=== PATIENT | male | born 1950 | race Caucasian/White ===

== ENCOUNTER → 2016-05-13 | Outpatient (CLI) | payer OTHER ==
[~2016-05-13] MED LIST: LEVAQUIN TAB 5500 MG PO
== END ==
DX: N18.3 Chronic kidney disease, stage 3 (moderate) (principal); Z91.041 Radiographic dye allergy status; Z91.040 Latex allergy status; Z91.013 Allergy to seafood; Z91.018 Allergy to other foods

== ENCOUNTER → 2016-05-21 | Outpatient (CLI) | payer OTHER | LOC: CT 08:00 | DX: N13.30 Unspecified hydronephrosis (principal); Z91.018 Allergy to other foods; Z91.013 Allergy to seafood; Z91.040 Latex allergy status; Z91.041 Radiographic dye allergy status ==

== ENCOUNTER 2020-11-09 18:11 | Emergency (ER) | payer OTHER ==
[~2020-11-09 18:11] MED LIST changes: +AEROECLIPSE II1 EACH MC; +AMLODIPINE BESYL5 MG PO; +AZITHROMYCIN250 MG PO; +BACTROBAN OINT22 GM EXT; +COLACE 100MG C100 MG PO; +COMBIVENT RESPIM4 GM INH; +DECADRON6 MG PO; +DEPO-TESTO200 MG/1 M IM; +IPRAT-ALBUT 0.5-3 ML INH; +JANUVIA100 MG PO; +KENALOG CREAM 015 GM TOP; +LEVEMIR100 UNIT/1 SQ; +PREDNISOLONE AC10 ML OS
[2020-11-09 19:02] LABS: HEMOGLOBIN 17.7 gm/dl (14.0-17.5); RED BLOOD COUNT 5.45 M/UL (4.20-5.50); WHITE BLOOD COUNT 7.2 K/UL (4.5-11.0)
[2020-11-09 19:20] LABS: BUN/CREATININE RATIO 22 (0-10)
== END 2020-11-09 21:55 | disposition home or self-care (01) ==
LOC: ER1 18:11
PROVIDERS: Emergency Medicine
DX: S30.0XXA Contusion of lower back and pelvis, initial encounter (principal); S60.222A Contusion of left hand, initial encounter; S20.229A Contusion of unspecified back wall of thorax, initial encounter; Z20.822 Contact with and (suspected) exposure to COVID-19; V49.40XA Driver injured in collision with unspecified motor vehicles in traffic accident, initial encounter; Y92.410 Unspecified street and highway as the place of occurrence of the external cause
CPT/HCPCS: 70450; 71045; 71260; 72125; 80053; 82550; 82553; 83874; 84484; 85025; 85610; 85730; 86850; 86900; 86901; 90471; 90715; 93005; 99284; Q9967; U0002

== ENCOUNTER → 2020-11-29 | Outpatient (CLI) | payer OTHER | LOC: HEART 5 07:39 | DX: R07.89 Other chest pain (principal); R00.1 Bradycardia, unspecified; R00.2 Palpitations; I08.2 Rheumatic disorders of both aortic and tricuspid valves | CPT/HCPCS: 78452; 93306; A9502 ==

== ENCOUNTER 2021-02-26 17:38 | Inpatient (IN) | payer OTHER ==
[~2021-02-26] VITALS: Ht 188 cm; Wt 102.1 kg
[~2021-02-26 17:38] MED LIST changes: -LEVEMIR100 UNIT/1 SQ; -PREDNISOLONE AC10 ML OS
[2021-02-26 18:35] LABS: RED BLOOD COUNT 5.5 M/UL (4.20-5.50); WHITE BLOOD COUNT 21.5 K/UL (4.5-11.0)
[2021-02-26 18:59] LABS: BUN/CREATININE RATIO 35 (0-10)
[2021-02-27] MEDS ORDERED: PREDNISOLONE AC10 ML OS (00:11)
[2021-02-27] MEDS ORDERED: LEVEMIR100 UNIT/1 SQ ×2 (00:12→12:33)
[2021-02-27 06:59] LABS: RED BLOOD COUNT 5.27 M/UL (4.20-5.50); WHITE BLOOD COUNT 19.7 K/UL (4.5-11.0)
[2021-02-27 07:27] LABS: BUN/CREATININE RATIO 29 (0-10)
[2021-02-27] MEDS ORDERED: HYDROCODON-ACE1 EAC4 PO (10:25)
[2021-02-27] MEDS ORDERED: COLACE100 MG PO (10:25)
[2021-02-27] MEDS ORDERED: IBU800 MG PO (12:37)
[2021-02-27] MEDS ORDERED: JARDIANCE25 MG PO (12:38)
[2021-02-27] MEDS ORDERED: NOVOLIN R100 UNIT/1 INJ (12:40)
[2021-02-28 05:59] LABS: HEMOGLOBIN 16.2 gm/dl (14.0-17.5); RED BLOOD COUNT 4.78 M/UL (4.20-5.50); WHITE BLOOD COUNT 15.5 K/UL (4.5-11.0)
[2021-02-28 06:28] LABS: BUN/CREATININE RATIO 35 (0-10)
== END 2021-02-28 14:38 | disposition home or self-care (01) | DRG 419 ==
LOC: ER1 17:38 → MED SURG 4 22:36 → CDU 22:36 → MED SURG 4 02-27 00:30
PROVIDERS: Internal Medicine; Physician Assistant; Physician Assistant Medical; Surgery; ADMIT Internal Medicine
PROC: 0FT44ZZ Resection of Gallbladder, Percutaneous Endoscopic Approach (ICD-10-PCS; principal; 2021-02-27 08:45)
DX: K80.00 Calculus of gallbladder with acute cholecystitis without obstruction (principal); K82.A1 Gangrene of gallbladder in cholecystitis; R00.8 Other abnormalities of heart beat; I10 Essential (primary) hypertension; Z96.649 Presence of unspecified artificial hip joint; E11.9 Type 2 diabetes mellitus without complications; Z86.16 Personal history of COVID-19; Z98.49 Cataract extraction status, unspecified eye; Z90.89 Acquired absence of other organs; Z79.899 Other long term (current) drug therapy; Z79.52 Long term (current) use of systemic steroids; Z79.4 Long term (current) use of insulin
CPT/HCPCS: 36415; 80053; 81001; 82150; 82550; 82553; 82962; 83605; 83690; 83735; 83874; 84484; 85025; 85027; 87040; 93005; 96374; 96375; 99285; C9113; G0378; J1100; J1650; J2001; J2270; J2405; J2543; J2704; J2710; J3010; J7030; J7120; Q9967; U0002